=== PATIENT | female | born 1995 | race Caucasian/White ===

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

== ENCOUNTER → 2018-03-04 | Outpatient (REF) | payer OTHER ==
[~2018-03-04] MED LIST: ATOM60CA; [UNRECOGNIZED DRUG - OTHER]
== END ==
LOC: M LAB REF 17:05
PROVIDERS: ATTEND Family Medicine
DX: N76.0 Acute vaginitis (principal)

== ENCOUNTER → 2018-09-23 | Outpatient (REF) | payer OTHER | LOC: M LAB REF 17:00 | PROVIDERS: ATTEND Family Medicine | DX: N76.0 Acute vaginitis (principal) ==